=== PATIENT | female | born 1970 | race Caucasian/White ===

== ENCOUNTER 2018-06-02 06:50 | Day surgery (SDC) | payer OTHER ==
[~2018-06-02] VITALS: Ht 177.8 cm; Wt 100.7 kg
[~2018-06-02 06:50] MED LIST: FISH1000 PO; LEVO2TA PO; MULTCAP PO; MULTTAB PO
[2018-06-02] MEDS ORDERED: NS 1,000 ML IV ONE (07:15)
[2018-06-02] MEDS ORDERED: LIDOCAINE 2% INJ 100 MG/5 ML SDV (FOR ANES.) As Ordered ONE (07:32)
[2018-06-02] MEDS ORDERED: PROPOFOL 500 MG/50 ML VIAL As Ordered ONE (07:32)
--- NOTE | 2018-06-02 07:50 | ROOR ---
Patient Name: Aracelis Joel Procedure Date: 06/02/2018 7:32 AM Date of : 1970 Age: 48 Room: [facility] Gender: Female Note Status: Finalized Procedure: Colonoscopy Indications: High risk colon cancer surveillance: Personal history of colonic polyps, Last colonoscopy: March 2015 Providers: Ollie MIXON MD Referring MD: IRENE BONILLA MD Requesting Provider: Medicines: Monitored Anesthesia Care Complications: No immediate complications. Procedure: Pre-Anesthesia Assessment: - The heart rate, respiratory rate, oxygen saturations, blood pressure, adequacy of pulmonary ventilation, and response to care were monitored throughout the procedure. The Colonoscope was introduced through the anus and advanced to the cecum, identified by appendiceal orifice and ileocecal valve. The colonoscopy was performed without difficulty. The patient tolerated the procedure well. The quality of the bowel preparation was good. Findings: The perianal and digital rectal examinations were normal. Mild sigmoid diverticulosis and small internal hemorrhoids. The entire examined colon appeared normal on direct and retroflexion views. Impression: - Mild sigmoid diverticulosis and small internal hemorrhoids. - The entire colon is otherwise normal on direct and retroflexion views. - No specimens collected. Recommendation: - Repeat colonoscopy in 5 years for surveillance based on personal history of previous adenomatous polyps. Ollie Mixon MD Ollie MIXON MD 06/02/2018 7:49:41 AM Electronically signed by Ollie MIXON MD Number of Addenda: 0 Note Initiated On: 06/02/2018 7:32 AM Estimated Blood Loss: Estimated blood loss: none.
[2018-06-02 08:10] VITALS: BP 128/76
== END 2018-06-02 08:12 | disposition home or self-care (01) ==
LOC: M OPP 06:50
PROVIDERS: ATTEND Internal Medicine Gastroenterology
DX: K57.30 Diverticulosis of large intestine without perforation or abscess without bleeding (principal); K64.8 Other hemorrhoids; Z86.010 Personal history of colon polyps

== ENCOUNTER 2024-09-14 07:04 | Day surgery (SDC) | payer OTHER ==
[~2024-09-14] VITALS: Ht 177.8 cm; Wt 103.7 kg
[~2024-09-14 07:04] MED LIST changes: +BETA250027 PO; +CVS10CAP8 PO; +MILK175C6 PO; +MILK500C PO; +MULTTAB61 PO; +NACCAP PO; +OMEGCAP4 PO; +SYNT88TA2 PO; +VITA100093 PO; +[UNRECOGNIZED DRUG - OTHER]; +[UNRECOGNIZED DRUG - REMARK]
[2024-09-14] MEDS ORDERED: GLYCOPYRROLATE INJ 0.2 MG/ML 2 ML VIAL As Ordered ONE (08:00)
[2024-09-14] MEDS ORDERED: LIDOCAINE 2% 100 MG/5 ML SDV (FOR ANES.) As Ordered ONE (08:00)
[2024-09-14 08:17] VITALS: TEMP 97.1
[2024-09-14 08:37] VITALS: BP 141/68; O2SAT 96
== END 2024-09-14 08:40 | disposition home or self-care (01) ==
LOC: M OPP 07:04
PROVIDERS: ATTEND Internal Medicine Gastroenterology
DX: D12.2 Benign neoplasm of ascending colon (principal); K57.30 Diverticulosis of large intestine without perforation or abscess without bleeding; K64.8 Other hemorrhoids; Z86.0100 Personal history of colon polyps, unspecified; Z91.041 Radiographic dye allergy status; Z79.899 Other long term (current) drug therapy
CPT/HCPCS: 45385; 88305; J1596